=== PATIENT | female | born 1960 | race Caucasian/White ===

== ENCOUNTER 2017-05-24 10:15 | Emergency (ER) | payer OTHER ==
[~2017-05-24] VITALS: Ht 170.2 cm; Wt 92.7 kg
[~2017-05-24 10:15] MED LIST: ADVIL,NUPRIN,M200 MG PO; ANTIVERT25 MG PO; BACTRIM,SEPT1 TABLET PO; BUSPAR10 MG PO; CLEOCIN300 MG PO; DILAUDID2 MG PO; FIORICET,ESG1 TABLET PO; FUROSEMIDE20 MG PO; KLOR-CON M1010 MEQ PO; NAPROSYN500 MG PO; NEURONTIN300 MG PO; OMEPRAZOLE20 MG PO; PERCOCET 5/31 TABLET PO; TRAMADOL HCL50 MG PO; TYLENOL EXTRA500 MG PO; TYLENOL REGULA325 MG PO; TYLENOL325 M1 PO; VITAMIN B-12250 MCG PO
[2017-05-24 10:32] VITALS: BP 143/100
== END 2017-05-24 12:46 | disposition home or self-care (01) ==
LOC: EME 10:15
DX: S93.401A Sprain of unspecified ligament of right ankle, initial encounter (principal); W18.30XA Fall on same level, unspecified, initial encounter; G89.29 Other chronic pain; M54.9 Dorsalgia, unspecified; Z85.41 Personal history of malignant neoplasm of cervix uteri; Z88.0 Allergy status to penicillin; Z88.6 Allergy status to analgesic agent
CPT/HCPCS: 73610; 99281; 99284

== ENCOUNTER 2017-06-13 11:36 | Inpatient (IN) | payer OTHER ==
[~2017-06-13] VITALS: Ht 170.2 cm; Wt 96.3 kg
[2017-06-13 12:21] LABS: HEMATOCRIT 37.6 % (36.0-46.0); HEMOGLOBIN 12.5 G/DL (11.9-15.5); MCH 29.8 PG (29.0-34.0); MCHC 33.2 G/DL (30.0-36.0); MCV 89.7 FL (83-99); PLATELET COUNT 220 K/uL (156-360); RBC DIS.WIDTH-SD 42.5 % (39-53); RED BLOOD COUNT 4.19 M/uL (3.80-5.20)
[2017-06-13 12:33] LABS: CHLORIDE 108 mEq/L (99-109); POTASSIUM 4.1 mEq/L (3.7-5.4); SODIUM 140 mEq/L (136-147)
[2017-06-13 12:35] LABS: GLUCOSE 90 mg/dL (70-99)
[2017-06-13 12:39] LABS: CREATININE 0.8 mg/dL (0.6-1.3); GFR ESTIMATE (CALCULATED) > 59 mL/min/; UREA NITROGEN (BUN) 17 mg/dL (9-23)
[2017-06-13 15:20] LABS: INTER. NORMALIZED RATIO 1.1; PTT 25.3 SEC (25-37)
[2017-06-13 16:54] LABS: TROP-I INTERPRETATION NEGATIVE; TROPONIN-I 0.06 ng/mL (0.0-0.30)
[2017-06-13 23:05] LABS: TROP-I INTERPRETATION NEGATIVE; TROPONIN-I 0.05 ng/mL (0.0-0.30)
[2017-06-14 00:03] VITALS: BP 130/75
[2017-06-14 03:50] VITALS: BP 114/66
[2017-06-14 05:54] LABS: HEMATOCRIT 32.9 % (36.0-46.0); HEMOGLOBIN 10.6 G/DL (11.9-15.5); MCH 29.4 PG (29.0-34.0); MCHC 32.2 G/DL (30.0-36.0); MCV 91.1 FL (83-99); PLATELET COUNT 186 K/uL (156-360); RBC DIS.WIDTH-CV 13.1 % (11.8-14.6); RBC DIS.WIDTH-SD 43.8 % (39-53); RED BLOOD COUNT 3.61 M/uL (3.80-5.20); WHITE BLOOD COUNT 6.1 K/uL (4.1-10.2)
[2017-06-14 06:13] LABS: TROP-I INTERPRETATION NEGATIVE; TROPONIN-I 0.03 ng/mL (0.0-0.30)
[2017-06-14 06:29] LABS: ALBUMIN 3.1 G/DL (3.2-4.8); ALKALINE PHOSPHATASE 62 IU/L (3-129); ALT (GPT) 12 IU/L (3-49); AST (GOT) 14 IU/L (2-34); CHLORIDE 112 MEQ/L (99-109); CREATININE 0.8 MG/DL (0.6-1.3); GFR ESTIMATE (CALCULATED) > 59 mL/min/; GLUCOSE 92 mg/dL (70-99); SODIUM 141 MEQ/L (136-147); TOTAL BILIRUBIN 0.8 MG/DL (0.0-1.0); TOTAL PROTEIN 6.2 G/DL (6.4-8.3); UREA NITROGEN (BUN) 17 mg/dL (9-23)
[2017-06-14 08:00] VITALS: BP 143/62
[2017-06-14 09:18] LABS: APPEARANCE SL.HAZY ((CLEAR)); BILIRUBIN NEGATIVE; BLOOD SMALL; COLOR YELLOW ((YELLOW)); GLUCOSE (STRIP) NEGATIVE; KETONES 5; LEUKOCYTES NEGATIVE; NITRITE NEGATIVE; PROTEIN (STRIP) NEGATIVE; SPECIFIC GRAVITY 1.029 (1.000-1.030); UROBILINOGEN 0.2 MG/DL (0.2-1.0)
[2017-06-14 09:46] LABS: BACTERIA NONE SEEN /HPF; EPITHELIAL CELLS RARE /HPF; MUCUS TRACE /LPF; RED BLOOD CELLS 0-5 /HPF (0-5)
[2017-06-14 11:15] VITALS: BP 131/74
[2017-06-14 19:15] VITALS: BP 112/57
[2017-06-15] VITALS (7 sets, daily range): BP systolic 100–139; BP diastolic 26–77
[2017-06-15 06:36] LABS: CHLORIDE 111 MEQ/L (99-109); CREATININE 0.8 MG/DL (0.6-1.3); GFR ESTIMATE (CALCULATED) > 59 mL/min/; GLUCOSE 90 mg/dL (70-99); MAGNESIUM 1.8 mg/dl (1.3-2.7); POTASSIUM 4.6 MEQ/L (3.7-5.4); SODIUM 140 MEQ/L (136-147); UREA NITROGEN (BUN) 16 mg/dL (9-23)
[2017-06-15 07:05] LABS: BASOPHIL (%) 0.5 % (0-1); EOSINOPHIL (%) 6.3 % (0-5); EOSINOPHIL COUNT 0.4 K/uL (0-0.3); HEMATOCRIT 31.5 % (36.0-46.0); IMMATURE GRANULOCYTE (%) 0.3 % (0.0-0.7); LYMPHOCYTE (%) 20.1 % (15-42); LYMPHOCYTE COUNT 1.2 K/uL (1.0-2.8); MCH 29.7 PG (29.0-34.0); MCHC 31.7 G/DL (30.0-36.0); MCV 93.5 FL (83-99); MONOCYTE (%) 9.9 % (3-12); MONOCYTE COUNT 0.6 K/uL (0-0.8); NEUTROPHIL (%) 62.9 % (45-76); NEUTROPHIL COUNT 3.7 K/uL (1.8-6.4); PLATELET COUNT 172 K/uL (156-360); RBC DIS.WIDTH-CV 13.2 % (11.8-14.6); RBC DIS.WIDTH-SD 44.9 % (39-53); RED BLOOD COUNT 3.37 M/uL (3.80-5.20); WHITE BLOOD COUNT 5.9 K/uL (4.1-10.2)
[2017-06-15 09:47] LABS: TROP-I INTERPRETATION NEGATIVE; TROPONIN-I 0.01 ng/mL (0.0-0.30)
[2017-06-15 14:25] LABS: INTER. NORMALIZED RATIO 1.7
[2017-06-15 14:35] LABS: PTT 31.1 SEC (25-37)
[2017-06-16 04:32] VITALS: BP 134/65
[2017-06-16 06:16] LABS: BASOPHIL (%) 1.1 % (0-1); BASOPHIL COUNT 0.1 K/uL (0-0.1); EOSINOPHIL (%) 6.4 % (0-5); EOSINOPHIL COUNT 0.4 K/uL (0-0.3); HEMATOCRIT 30.5 % (36.0-46.0); HEMOGLOBIN 9.9 G/DL (11.9-15.5); IMMATURE GRANULOCYTE (%) 0.7 % (0.0-0.7); LYMPHOCYTE (%) 25.7 % (15-42); LYMPHOCYTE COUNT 1.4 K/uL (1.0-2.8); MCH 29.6 PG (29.0-34.0); MCHC 32.5 G/DL (30.0-36.0); MONOCYTE (%) 8.4 % (3-12); MONOCYTE COUNT 0.5 K/uL (0-0.8); NEUTROPHIL (%) 57.7 % (45-76); NEUTROPHIL COUNT 3.2 K/uL (1.8-6.4); PLATELET COUNT 170 K/uL (156-360); RBC DIS.WIDTH-CV 13.1 % (11.8-14.6); RBC DIS.WIDTH-SD 43.2 % (39-53); RED BLOOD COUNT 3.35 M/uL (3.80-5.20); WHITE BLOOD COUNT 5.6 K/uL (4.1-10.2)
[2017-06-16 06:31] LABS: CHLORIDE 110 MEQ/L (99-109); CREATININE 0.9 MG/DL (0.6-1.3); GFR ESTIMATE (CALCULATED) > 59 mL/min/; GLUCOSE 86 mg/dL (70-99); POTASSIUM 3.9 MEQ/L (3.7-5.4); SODIUM 141 MEQ/L (136-147); UREA NITROGEN (BUN) 10 mg/dL (9-23)
[2017-06-16 07:07] VITALS: BP 134/85
[2017-06-16 11:15] VITALS: BP 137/79
[2017-06-16 15:36] VITALS: BP 134/76
[2017-06-16 19:49] VITALS: BP 134/95
[2017-06-17] VITALS (7 sets, daily range): BP systolic 118–145; BP diastolic 59–91
[2017-06-18 04:51] VITALS: BP 135/77
[2017-06-18 05:33] LABS: BASOPHIL (%) 1.1 % (0-1); BASOPHIL COUNT 0.1 K/uL (0-0.1); EOSINOPHIL (%) 6.7 % (0-5); EOSINOPHIL COUNT 0.4 K/uL (0-0.3); HEMATOCRIT 30.8 % (36.0-46.0); HEMOGLOBIN 9.8 G/DL (11.9-15.5); IMMATURE GRANULOCYTE (%) 0.2 % (0.0-0.7); LYMPHOCYTE (%) 24.8 % (15-42); LYMPHOCYTE COUNT 1.5 K/uL (1.0-2.8); MCH 28.9 PG (29.0-34.0); MCHC 31.8 G/DL (30.0-36.0); MCV 90.9 FL (83-99); MONOCYTE (%) 11.2 % (3-12); MONOCYTE COUNT 0.7 K/uL (0-0.8); NEUTROPHIL COUNT 3.5 K/uL (1.8-6.4); PLATELET COUNT 202 K/uL (156-360); RBC DIS.WIDTH-CV 13.2 % (11.8-14.6); RBC DIS.WIDTH-SD 43.8 % (39-53); RED BLOOD COUNT 3.39 M/uL (3.80-5.20); WHITE BLOOD COUNT 6.2 K/uL (4.1-10.2)
[2017-06-18 05:56] LABS: CHLORIDE 110 MEQ/L (99-109); CREATININE 0.9 MG/DL (0.6-1.3); GFR ESTIMATE (CALCULATED) > 59 mL/min/; GLUCOSE 86 mg/dL (70-99); POTASSIUM 4.3 MEQ/L (3.7-5.4); SODIUM 141 MEQ/L (136-147); UREA NITROGEN (BUN) 13 mg/dL (9-23)
[2017-06-18 07:48] VITALS: BP 120/59
[2017-06-18 12:48] VITALS: BP 124/69
[2017-06-18 16:00] VITALS: BP 117/59
[2017-06-18 19:18] VITALS: BP 122/71
[2017-06-18 23:36] VITALS: BP 112/61
[2017-06-19 04:34] VITALS: BP 116/69
[2017-06-19 05:56] LABS: BASOPHIL (%) 1.1 % (0-1); BASOPHIL COUNT 0.1 K/uL (0-0.1); EOSINOPHIL (%) 6.5 % (0-5); EOSINOPHIL COUNT 0.4 K/uL (0-0.3); HEMATOCRIT 32.1 % (36.0-46.0); HEMOGLOBIN 10.2 G/DL (11.9-15.5); IMMATURE GRANULOCYTE (%) 0.2 % (0.0-0.7); LYMPHOCYTE (%) 20.1 % (15-42); LYMPHOCYTE COUNT 1.1 K/uL (1.0-2.8); MCH 28.8 PG (29.0-34.0); MCHC 31.8 G/DL (30.0-36.0); MCV 90.7 FL (83-99); MONOCYTE (%) 11.8 % (3-12); MONOCYTE COUNT 0.7 K/uL (0-0.8); NEUTROPHIL (%) 60.3 % (45-76); NEUTROPHIL COUNT 3.4 K/uL (1.8-6.4); PLATELET COUNT 218 K/uL (156-360); RBC DIS.WIDTH-CV 13.2 % (11.8-14.6); RBC DIS.WIDTH-SD 43.7 % (39-53); RED BLOOD COUNT 3.54 M/uL (3.80-5.20); WHITE BLOOD COUNT 5.6 K/uL (4.1-10.2)
[2017-06-19 06:19] LABS: CHLORIDE 108 MEQ/L (99-109); GFR ESTIMATE (CALCULATED) > 59 mL/min/; GLUCOSE 86 mg/dL (70-99); POTASSIUM 4.2 MEQ/L (3.7-5.4); SODIUM 140 MEQ/L (136-147); UREA NITROGEN (BUN) 14 mg/dL (9-23)
[2017-06-19 08:06] VITALS: BP 127/68
[2017-06-19 11:44] VITALS: BP 137/77
[2017-06-19] MEDS ORDERED: XARELTO20 MG PO (12:44)
[2017-06-19] MEDS ORDERED: XARELTO15 MG PO (12:44)
== END 2017-06-19 16:17 | disposition home health service (06) | DRG 299 ==
LOC: EME 11:36 → EDOF 15:57 → 4EAST 15:57 → ENRESERV 15:58 → 4EAST 23:45 → ENRESERV 06-16 09:54 → CANRESERV 06-16 09:54 → ENRESERV 06-16 09:55 → CANRESERV 06-16 09:55 → 4EAST 06-19 16:17
PROVIDERS: Internal Medicine; Physician Assistant; Student in an Organized Health Care Education/Training Program
DX: I82.441 Acute embolism and thrombosis of right tibial vein (principal); I26.92 Saddle embolus of pulmonary artery without acute cor pulmonale; I82.431 Acute embolism and thrombosis of right popliteal vein; I82.411 Acute embolism and thrombosis of right femoral vein; D68.51 Activated protein C resistance; I27.20 Pulmonary hypertension, unspecified; I89.0 Lymphedema, not elsewhere classified; S82.61XA Displaced fracture of lateral malleolus of right fibula, initial encounter for closed fracture; Z85.41 Personal history of malignant neoplasm of cervix uteri
CPT/HCPCS: 70450; 71045; 71046; 71275; 73610; 80048; 80053; 81003; 82272; 83735; 83880; 84484; 85025; 85027; 85379; 85610; 85730; 87502; 93005; 93306; 93971; 94799; 97530 GO; 99281; 99285; J2270; J7030; S0028

== ENCOUNTER 2017-07-10 19:27 | Emergency (ER) | payer OTHER ==
[~2017-07-10] VITALS: Ht 170.2 cm; Wt 90.9 kg
[~2017-07-10 19:27] MED LIST changes: +XARELTO15 MG PO; +XARELTO20 MG PO
[2017-07-10 20:35] LABS: HEMATOCRIT 39.8 % (36.0-46.0); HEMOGLOBIN 13.3 G/DL (11.9-15.5); MCH 29.8 PG (29.0-34.0); MCHC 33.4 G/DL (30.0-36.0); PLATELET COUNT 237 K/uL (156-360); RBC DIS.WIDTH-CV 12.9 % (11.8-14.6); RBC DIS.WIDTH-SD 42.2 % (39-53); RED BLOOD COUNT 4.47 M/uL (3.80-5.20); WHITE BLOOD COUNT 7.4 K/uL (4.1-10.2)
[2017-07-10 20:50] LABS: CHLORIDE 104 mEq/L (99-109); SODIUM 136 mEq/L (136-147)
[2017-07-10 20:52] LABS: GLUCOSE 106 mg/dL (70-99)
[2017-07-10 20:56] LABS: CREATININE 0.9 mg/dL (0.6-1.3); GFR ESTIMATE (CALCULATED) > 59 mL/min/
[2017-07-10 20:57] LABS: UREA NITROGEN (BUN) 13 mg/dL (9-23)
[2017-07-10 20:58] LABS: TROP-I INTERPRETATION NEGATIVE; TROPONIN-I < 0.01 ng/mL (0.0-0.30)
[2017-07-10 20:59] LABS: APPEARANCE CLEAR ((CLEAR)); BILIRUBIN NEGATIVE; BLOOD SMALL; COLOR YELLOW ((YELLOW)); GLUCOSE (STRIP) NEGATIVE; KETONES 5; LEUKOCYTES NEGATIVE; NITRITE NEGATIVE; PROTEIN (STRIP) NEGATIVE; UROBILINOGEN 0.2 MG/DL (0.2-1.0)
[2017-07-10 21:00] LABS: INTER. NORMALIZED RATIO 1.9
[2017-07-10 21:03] LABS: PTT 32.5 SEC (25-37)
[2017-07-10 21:16] LABS: BACTERIA NONE SEEN /HPF; EPITHELIAL CELLS RARE /HPF; MUCUS TRACE /LPF; RED BLOOD CELLS 20-30 /HPF (0-5); UCUL ADDED? NO; WHITE BLOOD CELLS 0-5 /HPF (0-5)
[2017-07-10] MEDS ORDERED: TAMIFLU75 MG PO (23:03)
[2017-07-10 23:31] VITALS: BP 132/76
== END 2017-07-10 23:35 | disposition home or self-care (01) ==
LOC: EME 19:27
DX: J10.1 Influenza due to other identified influenza virus with other respiratory manifestations (principal); R31.9 Hematuria, unspecified; K21.9 Gastro-esophageal reflux disease without esophagitis; Z86.711 Personal history of pulmonary embolism; Z86.718 Personal history of other venous thrombosis and embolism; Z85.41 Personal history of malignant neoplasm of cervix uteri; Z88.6 Allergy status to analgesic agent; Z88.0 Allergy status to penicillin; Z88.8 Allergy status to other drugs, medicaments and biological substances
CPT/HCPCS: 71046; 80048; 81003; 84484; 85027; 85610; 85730; 87502; 93005; 99281; 99284

== ENCOUNTER → 2017-12-19 | Outpatient (CLI) | payer OTHER ==
[~2017-12-19] MED LIST changes: +TAMIFLU75 MG PO
== END | disposition home or self-care (01) ==
LOC: RES 12:26
DX: R94.2 Abnormal results of pulmonary function studies (principal)
CPT/HCPCS: 94070

== ENCOUNTER → 2018-01-09 | Outpatient (CLI) | payer OTHER | END | disposition home or self-care (01) | LOC: NUC 10:50 | DX: R06.02 Shortness of breath (principal); Z86.711 Personal history of pulmonary embolism | CPT/HCPCS: 71046; 78582; A9540; A9567 ==